=== PATIENT | male | born 1950 | race African-American/Black ===

== ENCOUNTER → 2017-07-16 | Outpatient (CLI) | payer MEDICARE, MEDICAID ==
[~2017-07-16] MED LIST: IOHEXOL-300 100 ML BOTTLE ONE
== END | disposition home or self-care (01) ==
LOC: CT 08:14
PROVIDERS: ATTEND Urology
DX: N40.0 Benign prostatic hyperplasia without lower urinary tract symptoms (principal); S22.41XA Multiple fractures of ribs, right side, initial encounter for closed fracture; C61 Malignant neoplasm of prostate; R91.8 Other nonspecific abnormal finding of lung field; X58.XXXA Exposure to other specified factors, initial encounter; Y93.89 Activity, other specified; Y92.89 Other specified places as the place of occurrence of the external cause; Y99.8 Other external cause status
CPT/HCPCS: 71046; 72194; Q9967

== ENCOUNTER 2017-09-02 11:42 | Emergency (ER) | payer MEDICARE, MEDICAID ==
[~2017-09-02] VITALS: Ht 182.9 cm; Wt 106.0 kg
[2017-09-02] MEDS ORDERED: ONDANSETRON HCL 4MG/2ML VIAL IV STA (12:44)
[2017-09-02] MEDS ORDERED: MORPHINE SULFATE 4 MG/ML CPJ (NOT FOR IM USE) IV STA (12:44)
[2017-09-02 13:17] LABS: PROTHROMBIN TIME 10.1 sec (9.4-11.6)
[2017-09-02 13:19] LABS: CHLORIDE 105 mEq/L (98-107)
[2017-09-02 13:20] LABS: CLARITY URINE CLEAR (CLEAR); COLOR URINE YELLOW (YELLOW); KETONES URINE NEGATIVE (NEGATIVE); LEUKOCYTE ESTERASE URINE 1+ (NEGATIVE); NITRITE URINE NEGATIVE (NEGATIVE); OCCULT BLOOD URINE NEGATIVE (NEGATIVE); PH URINE 5.5 (4.5-8.0); PROTEIN URINE 1+ (NEGATIVE); SPECIFIC GRAVITY URINE 1.016 (1.005-1.030)
[2017-09-02 13:29] LABS: BASOPHILS % 0.2 % (0.0-2.0); EOSINOPHILS % 1.4 % (0.0-5.0); HEMATOCRIT. 46.3 % (42.0-52.0); HEMOGLOBIN. 15.8 g/dL (14.0-18.0); LYMPHOCYTES % 21.3 % (20.0-50.0); MEAN CORPUSCULAR HEMOGLOBIN 29.5 pg (28.0-32.0); MEAN CORPUSCULAR VOLUME 86.7 fL (80.0-94.0); MEAN PLATELET VOLUME 9.6 fl (7.4-10.4); MONOCYTES % 10.4 % (2.0-8.0); NEUTROPHILS % 66.7 % (40.0-76.0); PLATELET 180 x1000/uL (130-400); RED BLOOD CELL COUNT 5.34 mill/uL (4.7-6.1); RED CELL DISTRIBUTION WIDTH 14.3 % (11.6-14.6)
[2017-09-02] MEDS ORDERED: CEFTRIAXONE 1 G PREMIX 50 ML IV NR (14:00)
[2017-09-02 16:41] VITALS: BP 139/94
[2017-09-02] MEDS ORDERED: IOHEXOL-300 100 ML BOTTLE ONE (17:15)
== END 2017-09-02 16:50 | disposition home or self-care (01) ==
LOC: ER 12:50
DX: C61 Malignant neoplasm of prostate (principal); R10.13 Epigastric pain; R07.89 Other chest pain; Z92.21 Personal history of antineoplastic chemotherapy; N30.00 Acute cystitis without hematuria; N20.0 Calculus of kidney; N28.1 Cyst of kidney, acquired; I10 Essential (primary) hypertension; I31.3 Pericardial effusion (noninflammatory); I25.2 Old myocardial infarction; Z86.73 Personal history of transient ischemic attack (TIA), and cerebral infarction without residual deficits; F17.210 Nicotine dependence, cigarettes, uncomplicated; M48.061 Spinal stenosis, lumbar region without neurogenic claudication
CPT/HCPCS: 36415; 72146; 72148; 74177; 80053; 81003; 83605; 83690; 85025; 85610; 87077; 87086; 96365; 96366; 96375; 99285; J0696; J2270; J2405; Q9967

== ENCOUNTER 2019-08-04 16:03 | Emergency (ER) | payer MEDICARE, MEDICAID ==
[~2019-08-04] VITALS: Ht 182.9 cm; Wt 90.0 kg
[2019-08-04 22:13] VITALS: BP 122/73
== END 2019-08-04 22:13 | disposition home or self-care (01) ==
LOC: ER 16:03
DX: R05 Cough (principal); I25.2 Old myocardial infarction; I16.9 Hypertensive crisis, unspecified
CPT/HCPCS: 71045; 99283